=== PATIENT | female | born 1970 | race Caucasian/White ===

== ENCOUNTER 2017-08-05 12:05 | Emergency (ER) ==
[2017-08-05 12:10] VITALS: TEMP 97; BMI 24.7
--- NOTE | 2017-08-05 14:03 | ED.PDOC ---
General ED Provider: Dr. MAJOR PAN Chief Complaint: Extremity Pain/Injury Stated Complaint: CC: Rt Shoulder Pain: HPI: Patient states she has pain in the Rt Shoulder, Rt upper Thigh and Rt Foot. States does lifting when unloading things into her motel room. 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 Denies known injury. BP noted uncontrolled and stated she had been out of medications. Is from [facility] and could not get her meds for her diabetes of hypertension refilled. Denies other complaints Time Seen by Physician: 12:35 Mode of Arrival: Walk-In Information Source: Patient Exam Limitations: No limitations Nursing and Triage Documentation Reviewed and Agree: Yes Reviewed sepsis parameters & appropriate labs ordered?: Yes System Inflammatory Response Syndrome: Not Applicable Sepsis Protocol: For patient's 13 years and over: Temp is 96.8 and below OR 101 and greater Pulse >90 BPM Resp >20/minute Acutely Altered Mental Status Are patient's symptoms suggestive of a new infection, such as: -Pneumonia -Skin, Soft Tissue -Endocarditis -UTI -Bone, Joint Infection -Implantable Device -Acute Abdominal Infection -Wound Infection -Meningitis -Blood Stream Catheter Infection -Unknown System Inflammatory Response Syndrome: Not Applicable Musculoskeletal Complaint Exam - Shoulder Pain Complaint/Exam Mechanism of Injury: Reports: No known trauma Onset/Duration: 2 days Symptoms Are: Still present Timing: Intermittent Initial Severity: Moderate Current Severity: Mild Location: Reports: Discrete Character: Reports: Dull, Aching Alleviating: Reports: Elevation Aggravating: Reports: Movement, Lifting Associated Signs and Symptoms: Denies: Swelling, Redness, Bruising, Fever, Weakness, Numbness, Tingling Related History: Denies: Similar episode, Occupational injury, Dominant hand right, Dominant hand left, Immobility Non-Orthopedic Risk Factors: Reports: None DVT Risk Factors: Reports: None Septic Arthritis Risk Factors: Reports: None Related Surgical History: Reports: None Shoulder Findings: Absent: Swelling, Ecchymosis, Abnormal contour, Rotation, Ligamentous instability, Laceration, Erythema, Warmth, Blisters, Other joint pain, Foreign body, Adson's Sign Tenderness: Present: AC joint, Rotator cuff muscles Limited Range of Motion: Present: External rotation Differential Diagnoses: Arthritis, Rotator Cuff Injury, Strain Review of Systems - Review Of Systems Constitutional: Reports: No symptoms Eyes: Reports: No symptoms Ears, Nose, Mouth, Throat: Reports: No symptoms Respiratory: Reports: No symptoms Cardiac: Reports: No symptoms GI: Reports: No symptoms : Reports: No symptoms Musculoskeletal: Reports: Other (rt Shoulder, Thigh and foot pain ) Skin: Reports: No symptoms Neurological: Reports: No symptoms Endocrine: Reports: No symptoms Hematologic/Lymphatic: Reports: No symptoms All Other Systems: Reviewed and Negative Past Medical History - Past Medical History Endocrine: Reports: DM 2 Cardiovascular: Reports: Hypertension Respiratory: Reports: None Hematological: Reports: None Gastrointestinal: Reports: GERD Genitourinary: Reports: None Neuro/Psych: Reports: None, Other (Denies substance or alcohol abuse) Musculoskeletal: Reports: Joint Pain, Other (rt shoulder, thigh and foot pain ) Cancer: Reports: None Last Menstrual Period: NOW - Surgical History General Surgical History: Reports: Unknown - Family History Family History: Reports: Heart, Hypertension, Diabetes - Social History Smoking Status: Former smoker Hx Substance Use: No Alcohol Screening: None Physical Exam - Physical Exam Appearance: Well-appearing, Obese Ill-appearing: None Pain Distress: Mild Eyes: NILSON, EOMI, Conjunctiva clear ENT: Ears normal, Nose normal, Oropharynx normal Neck: Supple Respiratory: Airway patent, Breath sounds clear, Breath sounds equal Cardiovascular: RRR, Pulses normal, No rub, No murmur GI/: Soft, Nontender, No masses, Bowel sounds normal, No Organomegaly Musculoskeletal: Normal strength, ROM intact (Slight tenderness to palpation and ROM with restricted Motion to external rotation and circumduction. Focal tenderness over AC joint) Skin: Warm Neurological: Sensation intact, Motor intact, Reflexes intact, Cranial nerves intact, Alert, Oriented Psychiatric: Affect appropriate, Mood appropriate, Anxious Interpretation - Radiology Interpretation Radiology Interpretation By: Radiologist Radiology Results: No acute changes Exam Interpreted: Other (Rt Shoulder) Re-Evaluation - Re-Evaluation Time of Re-Evaluation: 16:15 Status: Improved Vital Signs Stable: Yes (BP improving after med administration) Appearance: NAD Lungs: Clear Skin: Warm and Dry Neuro: Alert and Oriented X3 CV: RRR Critical Care Note - Critical Care Note Total Time (mins): 0 Course - Course Hematology/Chemistry: 08/05/17 14:15 08/05/17 14:15 Orders, Labs, Meds: Lab Review 08/05/17 08/05/17 14:15 14:15 WBC 7.97 RBC 4.56 Hgb 13.6 Hct 40.2 MCV 88.2 MCH 29.8 MCHC 33.8 RDW Coeff of Abebe 14.2 Plt Count 258 Immature Gran % (Auto) 0.1 Neut % (Auto) 45.7 Lymph % (Auto) 40.8 [place] % (Auto) 8.4 Eos % (Auto) 4.4 Baso % (Auto) 0.6 Immature Gran # (Auto) 0.0 Neut # (Auto) 3.6 Lymph # (Auto) 3.3 [place] # (Auto) 0.7 Eos # (Auto) 0.4 Baso # (Auto) 0.1 Sodium 137 Potassium 3.5 Chloride 106 Carbon Dioxide 25 Anion Gap 9.5 BUN 15 Creatinine 0.65 Estimated GFR (MDRD) 98.00 BUN/Creatinine Ratio 23.07 Glucose 111 H Calcium 9.1 Total Bilirubin 0.8 AST 14 L ALT 11 L Alkaline Phosphatase 96 Total Protein 7.2 Albumin 3.5 Globulin 3.7 Albumin/Globulin Ratio 0.95 Orders Category Date Time Status CBC W/ AUTO DIFF Stat LAB 08/05/17 14:15 Completed CMP [COMPREHENSIVE METABOLIC PANEL] Stat LAB 08/05/17 14:15 Completed Lisinopril/Hydrochlorothiazide [Zestoretic 20-12.5 mg MEDS 08/05/17 14:52 Discontinued Tab] 1 tab PO ONCE STA SHOULDER, RIGHT MIN 2V Stat RADS 08/05/17 13:33 Completed Medications Discontinued Medications Generic Name Dose Route Start Last Admin Trade Name Freq PRN Reason Stop Dose Admin Lisinopril/HCTZ 1 tab 08/05/17 14:52 08/05/17 14:59 Zestoretic 20-12.5 Mg Tab PO 08/05/17 14:53 1 tab ONCE STA Administration Vital Signs: Temp Pulse Resp BP Pulse Ox 08/05/17 16:23 140/90 08/05/17 12:06 97.0 F L 68 20 192/104 H 98 Departure - Departure Time of Disposition: 16:10 Disposition: HOME SELF-CARE Discharge Problem: Shoulder pain, right Qualifiers: Chronicity: acute Qualified Code(s): M25.511 - Pain in right shoulder Hypertension Qualifiers: Hypertension type: unspecified Qualified Code(s): I10 - Essential (primary) hypertension Instructions: Hypertension (ED), Shoulder Pain (ED) Condition: Good Pt referred to PMD for follow-up: Yes (Follow up with PCP in next week for evaluation of BP and referral to Ortho) IPMP verified?: No Additional Instructions: TMay take Tylenol 2 tabs every 6 hours for reduction of shoulder pain Apply alternating Ice pack for 20 minutes to the rt shoulder with warm moist heat Avoid strenuous activities Schedule apt with Primary physician and/Orthopedic surgeon Take meds as directed Prescriptions: Lisinopril/Hydrochlorothiazide [Lisinopril-Hctz 20-25 mg Tab] 1 tab PO DAILY # 30 tablet Allergies/Adverse Reactions: Allergies Penicillins Adverse Reaction (Verified 08/07/17 06:23) Vomiting Home Medications: Ambulatory Orders Lisinopril/Hydrochlorothiazide [Lisinopril-Hctz 20-25 mg Tab] 1 tab PO DAILY # 30 tablet 08/05/17 Metformin HCl 1,000 mg PO DAILY 08/05/17 Ranitidine HCl [Acid Control] 150 mg PO DAILY PRN 08/07/17 Disposition Discussed With: Patient
--- NOTE | 2017-08-05 14:31 | DI ---
EXAM: Three views of the right shoulder. History: Right shoulder pain. Findings: No acute fracture or dislocation. Sclerosis and cystic change within the superior lateral aspect of the humeral head. Joint spaces are preserved. Impression: 1. No acute osseous abnormality. 2. Possible rotator cuff disease
[2017-08-05] MEDS: ZESTORETIC 20-12.5 MG TAB PO STA (14:59)
[2017-08-05 16:24] VITALS: BP 140/90
== END 2017-08-05 16:24 | disposition home or self-care (01) ==
LOC: ED 12:05
DX: M25.511 Pain in right shoulder (principal); I10 Essential (primary) hypertension; M79.671 Pain in right foot; M79.651 Pain in right thigh; E11.9 Type 2 diabetes mellitus without complications; X50.9XXA Other and unspecified overexertion or strenuous movements or postures, initial encounter
CPT/HCPCS: 36415; 80053; 85025; 99283

== ENCOUNTER 2017-08-07 06:06 | Observation (INO) | payer OTHER ==
--- NOTE | 2017-08-07 07:55 | DI ---
EXAM: Single view of the chest. History: Chest tightness. Findings: Heart size is normal. No focal consolidation. No appreciable pleural fluid and no pneumo thorax. No acute osseous abnormalities. Impression: No acute cardiopulmonary process
--- NOTE | 2017-08-07 07:56 | ED.PDOC ---
General ED Provider: Dr. MAJOR PAN Chief Complaint: Non-specific Complaint Stated Complaint: Patient states she had a sudden onset of Jaw and Neck discomfort awakening her from sleep arround 11:00 PM last evening. Described as "Tightness in upper chest moving into the jaw, sides of head -scalp and radiating into the bilateral neck and shoulder regions.Describes as being a intense pressure-tightness sensation that lasted several minutes before dissipating. Denies Chest pain or epigastric discomfort/indigestion. States she had recurrent discomfort intermittently during the night only lasting several minutes each time. It seemed to progressive worsening and she eventually awakened her telling him she felt like she needed to go the the ER. Was told she would be ok and apparently after he went to work she had yet another episode that was more uncomfortable and she drove her self to the ER. Time Seen by Physician: 07:05 Mode of Arrival: Walk-In Information Source: Patient Exam Limitations: No limitations Seen Within Last 72 Hours for Same Complaint By: ED (Was seen on 08-05-2017 for complaint of Rt Shoulder discomfort, uncontrolled hypertension stating she was traveling with her who was employed by the [employer] and was on assigment in this region. Stated then she was out of all of her meds and had not been taking her BP or Diabetic Meds requesting refills. Was given Rx Lisinopril Hctz for home. No complaints of chest, neck or jaw discomfort at that time.) Nursing and Triage Documentation Reviewed and Agree: Yes Reviewed sepsis parameters & appropriate labs ordered?: Yes System Inflammatory Response Syndrome: Not Applicable Sepsis Protocol: For patient's 13 years and over: Temp is 96.8 and below OR 101 and greater Pulse >90 BPM Resp >20/minute Acutely Altered Mental Status Are patient's symptoms suggestive of a new infection, such as: -Pneumonia -Skin, Soft Tissue -Endocarditis -UTI -Bone, Joint Infection -Implantable Device -Acute Abdominal Infection -Wound Infection -Meningitis -Blood Stream Catheter Infection -Unknown System Inflammatory Response Syndrome: Not Applicable Cardiovascular Complaint Exam - Chest Pain Complaint/Exam Onset: Sudden Duration: 3-5 minutes Symptoms Are: Resolved Timing: Intermittent Initial Severity: Mild Current Severity: Moderate Location: Reports: Upper sternal, Other (sternomanubrial region radiating into bilateral jaw, parietal temporal scalp region into bilat neck , shoulder and arms.) Pain Radiates: Reports: Left shoulder, Right shoulder, Left arm, Right arm, Jaw , Neck Character: Reports: Tightness, Heaviness, Pressure Aggravating: Reports: None Alleviating: Reports: Rest Associated Signs and Symptoms: Denies: Diaphoresis, Nausea, Vomiting, Fever, Palpitations, Cough, Back pain, Abdominal pain, Dizziness, Short of air, Calf pain, Calf swelling Related History: Reports: Current Alexandre Inhibitors. Denies: Similar episode, Current ARBs, Current Beta Samantha Related Surgical History: Reports: None History of Healthcare-Acquired Pneumonia: Reports: No AMI/ACS Risk Factors: Reports: Diabetes, Family history, Smoking, Dyslipidemia TAD Risk Factors: Reports: Hypertension, Smoking, Family history Pulmonary Embolism Risk Factors: Reports: None Prior Care for this Complaint: No Recent Stress Test: No Recent Echo/LV Function: No JVD Present: No Subcutaneous Emphysema Present: No Diminshed Breath Sounds: No Reproducible Chest Wall Pain: No Bilateral Pulses Present: Yes Unequal Pulses Noted: No If Risk Factors for AMI/ACS Consider: EKG, Cardiac Enzymes Documents Reviewed: EMS records, Labs, Imaging, EKG Differential Diagnoses: ACS, Unstable Angina, GI Diseasae Quality Indicators For Acute OK or Cardiac Chest Pain: EKG in 10min. Patient Advised to Stop Smoking: Yes (Quit smoking 2 months ago; 34 yr pack history) Review of Systems - Review Of Systems Constitutional: Reports: No symptoms Eyes: Reports: No symptoms Ears, Nose, Mouth, Throat: Reports: Throat pain (Neck pain ) Respiratory: Reports: No symptoms Cardiac: Reports: Other (Bilateral jaw,neck discomfort-occasional upper ches). Denies: Chest pain, Irregular heart rate, Lightheadedness, Palpitations, Syncope GI: Reports: No symptoms : Reports: No symptoms Musculoskeletal: Denies: Back pain, Muscle pain, Muscle stiffness Skin: Reports: No symptoms Neurological: Reports: No symptoms Endocrine: Reports: No symptoms Hematologic/Lymphatic: Reports: No symptoms All Other Systems: Reviewed and Negative Past Medical History - Past Medical History Previously Healthy: No (Hypertension, Diabetes, GERD(on Zantac)) Endocrine: Reports: DM 2 Cardiovascular: Reports: Hypertension Respiratory: Reports: None Hematological: Reports: None Gastrointestinal: Reports: GERD Genitourinary: Reports: None Neuro/Psych: Denies: Depression Musculoskeletal: Reports: None Cancer: Reports: None Last Menstrual Period: PRESENTLY - Surgical History General Surgical History: Reports: None - Family History Family History: Reports: Heart, Diabetes, Lung (Vapes daily) - Social History Smoking Status: Former smoker Hx Substance Use: Yes (COCAINE AND ALCOHOL, DOES SMOKE POT) Alcohol Screening: Occasionally - Immunizations Tetanus Shot up to Date: No Physical Exam - Physical Exam Appearance: Well-appearing (During intake experienced additional discomfort grabbing her neck appearing uncomfortable -lasted approximately 4-5 minutes) Ill-appearing: None Pain Distress: None Eyes: NILSON, EOMI, Conjunctiva clear ENT: Ears normal, Nose normal, Oropharynx normal Neck: Supple Respiratory: Airway patent, Breath sounds clear, Breath sounds equal Cardiovascular: RRR, Pulses normal, No rub, No murmur GI/: Soft, Nontender, No masses, Bowel sounds normal, No Organomegaly Musculoskeletal: Normal strength, ROM intact, No edema, No calf tenderness Skin: Warm, Dry, Normal color Neurological: Sensation intact, Motor intact, Cranial nerves intact, Alert, Oriented, Disoriented Psychiatric: Affect appropriate, Mood appropriate Critical Care Note - Critical Care Note Total Time (mins): 0 Course - Course Hematology/Chemistry: 08/07/17 07:15 08/07/17 07:15 Orders, Labs, Meds: Lab Review 08/07/17 08/07/17 08/07/17 07:10 07:15 07:15 WBC 7.98 RBC 4.62 Hgb 13.7 Hct 40.8 MCV 88.3 MCH 29.7 MCHC 33.6 RDW Coeff of Abebe 14.2 Plt Count 270 Immature Gran % (Auto) 0.4 Neut % (Auto) 48.6 Lymph % (Auto) 37.5 [place] % (Auto) 8.3 Eos % (Auto) 4.6 Baso % (Auto) 0.6 Immature Gran # (Auto) 0.0 Neut # (Auto) 3.9 Lymph # (Auto) 3.0 [place] # (Auto) 0.7 Eos # (Auto) 0.4 Baso # (Auto) 0.1 Sodium 136 Potassium 3.8 Chloride 103 Carbon Dioxide 25 Anion Gap 11.8 BUN 19 H Creatinine 0.67 Estimated GFR (MDRD) 95.00 BUN/Creatinine Ratio 28.35 Glucose 138 H Hemoglobin A1c Calcium 9.0 Total Bilirubin 0.9 AST 11 L ALT 9 L Alkaline Phosphatase 97 Total Creatine Kinase 27 Troponin I 0.0410 Total Protein 6.7 Albumin 3.3 L Globulin 3.4 Albumin/Globulin Ratio 0.97 Triglycerides 81 Cholesterol 179 LDL Cholesterol, Calc 102 VLDL Cholesterol 16 HDL Cholesterol 61 Cholesterol/HDL Ratio 2.9 L 08/07/17 08:45 WBC RBC Hgb Hct MCV MCH MCHC RDW Coeff of Abebe Plt Count Immature Gran % (Auto) Neut % (Auto) Lymph % (Auto) [place] % (Auto) Eos % (Auto) Baso % (Auto) Immature Gran # (Auto) Neut # (Auto) Lymph # (Auto) [place] # (Auto) Eos # (Auto) Baso # (Auto) Sodium Potassium Chloride Carbon Dioxide Anion Gap BUN Creatinine Estimated GFR (MDRD) BUN/Creatinine Ratio Glucose Hemoglobin A1c 9.0 H Calcium Total Bilirubin AST ALT Alkaline Phosphatase Total Creatine Kinase Troponin I Total Protein Albumin Globulin Albumin/Globulin Ratio Triglycerides Cholesterol LDL Cholesterol, Calc VLDL Cholesterol HDL Cholesterol Cholesterol/HDL Ratio Orders Category Date Time Status EKG-(ED ONLY) Stat CARDIO 08/07/17 07:00 Completed NPO REMINDER: LAB TEST ONCE CARE 08/07/17 08:06 Completed CBC W/ AUTO DIFF Stat LAB 08/07/17 07:15 Completed COMPREHENSIVE METABOLIC PANEL Stat LAB 08/07/17 07:15 Completed CREATINE KINASE Stat LAB 08/07/17 07:15 Completed HEMOGLOBIN A1C Stat LAB 08/07/17 08:45 Completed LIPID PANEL Stat LAB 08/07/17 07:10 Completed TROPONIN I Stat LAB 08/07/17 07:15 Completed URINALYSIS C & S IF INDICATED Stat LAB 08/07/17 09:04 Uncollected URINE DRUG SCREEN (RAPID FOR ED) [DRUG SCREEN, URINE, LAB 08/07/17 09:04 Uncollected RAPID] Stat Lorazepam [Ativan] MEDS 08/07/17 08:08 Discontinued 1 mg PO ONCE STA Ranitidine HCl [Zantac] MEDS 08/07/17 08:42 Discontinued 150 mg PO ONCE STA CHEST, 1V AP ONLY Stat RADS 08/07/17 07:00 Completed Medications Discontinued Medications Generic Name Dose Route Start Last Admin Trade Name Freq PRN Reason Stop Dose Admin Lorazepam 1 mg 08/07/17 08:08 08/07/17 08:14 Ativan PO 08/07/17 08:09 1 mg ONCE STA Administration Ranitidine HCl 150 mg 08/07/17 08:42 03/08/18 08:50 Zantac PO 08/07/17 08:43 150 mg ONCE STA Administration Vital Signs: Temp Pulse Resp BP Pulse Ox 08/07/17 06:50 56 L 20 145/92 H 98 08/07/17 06:07 97.4 F L 65 20 143/98 H 99 AMI Core - Palliative Care Palliative Care: none - Aspirin Reason for not ordering Aspirin: not indicated - Statins Reason for not ordering Statins: not indicated - Fibrinolytic Reason for not ordering Fibrinolytic: not indicated - EKG Initial Interpretation EKG Initial Interpretation Date: 08/07/17 (LVH voltage criteria, No Acute STT wave changes; Cannot R/O Old septal infarct) BAHMAN Risk Score BAHMAN Risk Score: Risk Score Odds of by 30D 0 0.1 (0.1-0.2) 1 0.3 (0.2-0.3) 2 0.4 (0.3-0.5) 3 0.7 (0.6-0.9) 4 1.2 (1.0-1.5) 5 2.2 (1.9-2.6) 6 3.0 (2.5-3.6) 7 4.8 (3.8-6.1) Departure - Departure Time of Disposition: 09:25 Disposition: PLACED OBSERVATION Discharge Problem: Atypical chest pain, Anxiety GERD (gastroesophageal reflux disease) Qualifiers: Esophagitis presence: esophagitis presence not specified Qualified Code(s): K21.9 - Gastro-esophageal reflux disease without esophagitis Hypertension Qualifiers: Hypertension type: essential hypertension Qualified Code(s): I10 - Essential ( primary) hypertension Diabetes type 2, controlled Qualifiers: Diabetes mellitus complication status: without complication Condition: Fair Pt referred to PMD for follow-up: Yes (admitted to dr allen) IPMP verified?: Yes (neg for [place]) Additional Instructions: Recommended to patient for 23 hr observation for serial EKG and cardiac lab, plus cardiac work up including Stress Test. Stated she was agreeable to this. Spoke with Dr Allen who agreed to admission for observation and will order remaining test as needed .Requested urine Drug Screen.Test ordered. Stated since receiving Lorazepam and Zantac is feeling much better. Allergies/Adverse Reactions: Allergies Penicillins Adverse Reaction (Verified 08/07/17 06:23) Vomiting Home Medications: Ambulatory Orders Lisinopril/Hydrochlorothiazide [Lisinopril-Hctz 20-25 mg Tab] 1 tab PO DAILY # 30 tablet 08/05/17 Metformin HCl 1,000 mg PO DAILY 08/05/17 Ranitidine HCl [Acid Control] 150 mg PO DAILY PRN 08/07/17 Disposition Discussed With: Patient Additional Comments Additional Comments: Initally patient denied history of recent drug use. Upon further inquiry patient admitted to recent Coccaine use last weekend and further more admitted to long standing hx of drug and alcohol use(States does not drink daily and attempting to stop coccaine). Stated "my whole family has hx of drug problems and that her niece recently from heroin overdose" Stated she only uses when she goes back to [place]. 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
[2017-08-07] MEDS ORDERED: ATIVAN PO STA (08:08)
[2017-08-07] MEDS ORDERED: ZANTAC PO STA (08:42)
[2017-08-07 10:18] VITALS: BMI 28.6
[2017-08-07] MEDS ORDERED: LOVENOX SUBCUT STA (10:32)
[2017-08-07] MEDS ORDERED: NON-FORMULARY MEDICATION (Metformin Hcl [Metformin Hcl] 1,000 MG) PO SCH (10:45)
[2017-08-07] MEDS ORDERED: GLUCOPHAGE PO SCH (11:00)
[2017-08-07] MEDS ORDERED: ROCEPHIN 1 GM in SODIUM CHLORIDE 50 ML IV SCH (11:00)
[2017-08-07] MEDS ORDERED: ZESTRIL PO SCH (11:00)
[2017-08-07] MEDS ORDERED: HYDROCHLOROTHIAZIDE PO SCH (11:00)
[2017-08-07] MEDS ORDERED: TORADOL IVP PRN (11:20)
[2017-08-07] MEDS ORDERED: TORADOL IVP STA (11:20)
--- NOTE | 2017-08-07 11:23 | CT ---
EXAM: CT BRAIN HISTORY: Headache TECHNIQUE: CT brain without intravenous contrast. 5-mm axial sections with Reformations. COMPARISON: None FINDINGS: There is mild generalized atrophy. There is at least mild periventricular and deep white matter low a ttenuation which although nonspecific is suggestive of chronic microvascular ischemic change. Possib le tiny 6 mm chronic infarction in the right periventricular deep white matter versus asymmetric exte nsion of chronic microvascular ischemic change. Brain otherwise is unremarkable without evidence of hemorrhage or large vessel distribution recent is chemic infarction. There is no suggestion of acute hydrocephalus or subdural fluid collection. No m ass or mass effect. Cranium is within normal limits. Mastoid processes are aerated. The visualized paranasal sinuses a re clear. IMPRESSION: No acute intracranial process.
[2017-08-07] MEDS ORDERED: NICODERM 21 MG TD SCH (11:30)
--- NOTE | 2017-08-07 13:15 | STRESSECHO ---
Date of Test: 08/07/17 Reason for Exam: CHEST PAIN, HTN, DM, JAW AND ARM PAIN/TIGHTNESS Ordering Physician: DR. HUEY BAINS Current Medications: CEFTRIAXONE, HCTZ, TORADOL, ZESTRIL, GLUCOPHAGE, RANITIDINE , METFORMIN Resting EKG: SINUS RHYTHM/SHORT ID Target Heart Rate: 147/174 S-T SEGMENT STAGE MPH/GRADE HEART RATE BPM BLOOD PRESSURE MMHG RHYTHM 0 +/- ELEVATION DEPRESSION SYMPTOMS,COMMENTS At Rest 80 124/78 SR X NO COMMENTS 1 1.7/10% 110 144/82 SR X NO COMMENTS 2 2.5/12% 3 3.4/14% 4 4.2/16% 5 5.0/18% Immediately after 110 144/82 SR X CHEST PAIN Durations of Exercise: 2:53 Maximum Heart Rate Reached: 110 Reason for Termination: CHEST PAIN 3 MINUTES POST EXERCISE: HR 90 BPM, BP 132/88 MMHG, SR, +/-, NO COMMENTS INTERPRETATION: 98% OXYGEN SATURATION WITH EXERCISE ON ROOM AIR 1. TEST POSITIVE FOR ISCHEMIA (ST ELEVATION IN PRECORDIAL LEAD) 2. CHEST TIGHTNESS WITH EXERCISE 3. PVC'S DURING EXERCISE 4. BLOOD PRESSURE RESPONSE NORMAL 5. LEFT VENTRICLE CONTRACTILITY NORMAL AT REST 6. HYPOKINETIC SEPTUM POST EXERCISE 7. FIVE MINUTES POST EXERCISE--NORMAL LEFT VENTRICULAR CONTRACTILITY MTDD
--- NOTE | 2017-08-07 13:18 | ECHOSTRESS ---
Date of Exam: 08/07/17 Ordering Physician: DR. HUEY BAINS Reason for Echo: CHEST PAIN, STRESS TEST--POSITIVE FOR ISCHEMIA M-Mode Normal Adult Results LV Dimensions Normal Adult Results AoV Opening excursions >1.6 LVEDD-base- 3.5-5.8 Ao root dimensions 2.0-3.7 LVESD-base- 3.1-4.6 L. Atrium dimensions 1.9-3.8 Post. Wall thickness 0.8-1.1 IV septum (thickness) 0.7-1.2 Post. Wall excursion 0.72-1.3 Septal motion Systolic motion R. Ventricular cavity 1.5-2.0 LVEF 60% Paradoxical septal wall motion 2-D: NORMAL LEFT VENTRICULAR CONTRACTILITY AT REST--HYPOKINETIC SEPTUM WITH EXERCISE M-MODE: MV: AV: TV: PV: CHAMBER SIZE: WALL MOTION: NORMAL LEFT VENTRICULAR CONTRACTILITY AT REST-- HYPOKINETIC SEPTUM WITH EXERCISE PERICARDIUM: INTERPRETATION: 1. NORMAL LEFT VENTRICULAR CONTRACTILITY AT REST-- HYPOKINETIC SEPTUM WITH EXERCISE MTDD
--- NOTE | 2017-08-07 13:21 | ECHO2D ---
Date of Exam: 08/07/17 Ordering Physician: DR. HUEY BAINS Room #: [id number] Reason for Echo: CHEST PAIN M-Mode Normal Adult Results LV Dimensions Normal Adult Results AoV Opening excursions >1.6 >1.6 LVEDD-base- 3.5-5.8 4.5 Ao root dimensions 2.0-3.7 3.0 LVESD-base- 3.1-4.6 3.5 L. Atrium dimensions 1.9-3.8 3.5 Post. Wall thickness 0.8-1.1 1.0 IV septum (thickness) 0.7-1.2 1.0 Post. Wall excursion 0.72-1.3 NORMAL Septal motion NORMAL Systolic motion R. Ventricular cavity 1.5-2.0 NORMAL LVEF 60% 58% Paradoxical septal wall motion NORMAL 2-D : 2-D M Mode Echocardiogram was performed using apical four chamber and left parasternal long and short axis views. Mitral, tricuspid and aortic valves appear to be normal. Contractility of the left ventricle seems to be normal, so is the cavity size. Left atrial cavity size and aortic root appear to be normal. There is no pericardial effusion. There is no thrombus noted in the left ventricular or left aortic cavity. No mitral valve prolapse noted. M-MODE: MV: NORMAL AV: NORMAL TV: NORMAL PV: CHAMBER SIZE: NORMAL WALL MOTION: NORMAL PERICARDIUM: NORMAL INTERPRETATION: 1. NORMAL 2 "D" "M" MODE ECHO MTDD
--- NOTE | 2017-08-07 13:45 | SSS ---
DATE OF SERVICE: 08/07/17 REASON FOR ADMISSION: Chest pain. HISTORY OF PRESENT ILLNESS: This is a 47-year-old female with diabetes, hypertension and history of cocaine use, came to the emergency room with feeling of heaviness in the mid sternum since yesterday. Both shoulders and extremities were heavy. She had a similar episode two months ago for which the patient did not do anything. The patient has family history of coronary artery disease. As the chest pain was not getting better, she came to the emergency room today. EKG was normal sinus. Troponin and cardiac enzymes were negative. Urine screen positive for cocaine. At that time she was admitted to the hospital to rule out acute coronary syndrome. REVIEW OF SYSTEMS: CONSTITUTIONAL: No night sweats. No fatigue, malaise, lethargy. No fever or chills. HEENT: Eyes: No visual changes. No eye pain. No eye discharge. ENT: No runny nose. No epistaxis. No sinus pain. No sore throat. No odynophagia. No ear pain. No congestion. RESPIRATORY: No cough, no congestion. No hemoptysis. No shortness of breath. CARDIOVASCULAR: No angina symptoms. No CHF symptoms. Chest tightness and heaviness. No palpitations. No orthopnea. GASTROINTESTINAL: No abdominal pain. No nausea or vomiting. No diarrhea or constipation. No hematemesis. No hematochezia. GENITOURINARY: No dysuria. No hematuria. No obstructive symptoms. No discharge. No pain. No significant abnormal bleeding. MUSCULOSKELETAL: No musculoskeletal pain. No joint swelling. NEUROLOGICAL: Awake, alert, oriented to time, place and person. No headache. No neck pain. No syncope. No seizures. No dizziness. PSYCHIATRIC: Not anxious. No depression. No suicidal thoughts. No homicidal thoughts. SKIN: No rash. No lesions. No wounds. ENDOCRINE: No unexplained weight loss. No weight gain. HEMATOLOGIC/LYMPHATIC: No anemia. No purpura. No petechiae. No prolonged or excessive bleeding. No palpable lymph nodes. PAST MEDICAL HISTORY: DM Hypertension Dyslipidemia PERSONAL/FAMILY HISTORY/SOCIAL HISTORY: . Smokes marijuana. Uses cocaine, last time per patient before the weekend. Family History: Significant for coronary artery disease. PHYSICAL EXAMINATION: VITAL SIGNS: Temperature 97.4, pulse 65, BP 143/98, respiratory rate 20. HEENT: Head normocephalic, atraumatic. Eyes: Extraocular muscles are intact. Pupils are equal, round and reactive to light and accommodation. Ears: No lesions. Nose appeared normal. Throat: No exudate or erythema. NECK: Supple. No JVD, no carotid bruit. No lymphadenopathy or thyromegaly. LUNGS: Clear to auscultation. Percussion note normal. Chest symmetrical. HEART: S1, S2, no S3. No murmurs. No cyanosis or clubbing. No ascites. Pulses: Dorsalis pedis and posterior tibial pulses +1 to +2 both sides. ABDOMEN: Soft. Nontender. Bowel sounds active. No CVA tenderness. No mass felt. EXTREMITIES: No edema. Full range of motion of all extremities, equal. NEUROLOGIC: No focal deficit. Cranial nerves II through XII are grossly intact. No headache, no double vision or headache. SKIN: Not dry. Intact. Turgor - normal. LYMPHATIC: No palpable lymph nodes/no lymphedema. MUSCULOSKELETAL: Normal joints with no swelling. Muscle tone is normal. Old/present records reviewed Office records reviewed. ALLERGIES: PENICILLINS MEDICATIONS: (HOME) Lisinopril-HCTZ 20-25 mg one tab p.o. daily Metformin 1000 mg p.o. daily Ranitidine 150 mg p.o. daily p.r.n. LABS/EKG'S/X-RAY/ECHO/ABG: WBC 7.98, RBC 4.62, Hgb 13.7, Hct 40.8, MCV 88.3, MCH 29.7, MCHC 33.6, RDW Coeff of Abebe 14.2, platelet count 270, Neut %(Auto) 48.6, Lymph % (Auto) 37.5, King % (Auto) 8.3, Eos % (Auto) 4.6, Baso % (Auto) 0.6, Immature Gran# (Auto) 0.0, Neut# (Auto) 3.9, Lymph #(Auto) 3.0, King #(Auto) 0.7, Eos #(Auto) 0.4, Baso#(Auto) 0.1. Chemistries: Sodium 136, Potassium 3.8, Chloride 103, Carbon Dioxide 25, Anion Gap 11.8, BUN 19, Creatinine 0.67, Estimated GFR 95, BUN/ Creatinine Ratio 28.35, glucose 138, Hgb A1C 9.0, Calcium 9.0, total bilirubin 0.9, AST 11, ALT 9, alkaline phosphatase 97, Troponin I 0.0410, total protein 6.7, albumin 3.3, globulin 3.4, triglycerides 81, cholesterol 179, LDL 102, VLDL 16, HDL 61, Cholesterol/HDL ratio 2.9. TSH 1.142. Urine positive for nitrite, trace-lysed blood, microscopic RBC 0.2, Squamous epithieal cells 20-30 , urine bacteria 4+. Toxicology: Positive for cocaine. Head CT: No acute intracranial process. Chest x-ray: No acute cardiopulmonary process. Stress echo: Normal left ventricular contractility at rest Hypokinetic septum with exercise. Stress echo report: 1) Test positive for ischemia (ST elevation in precordial lead); 2) Chest tightness with exercise; 3) PVCs during exercise; 4) Blood pressure response normal; 5) Left ventricle contractility normal at rest; 6) Hypokinetic septum post exercise; 7) Five minutes post exercise - normal left ventricular contractility. PROGRESS NOTES: See EMR. BRIEF HOSPITAL COURSE: The patient was admitted to observation. I asked Dr. Aj to do stress test and he was courtenous enough to do the test. Within [address]-T wave changes were seen and some PVCs and patient was complaining of chest pain. The patient rested for 3 minutes, which resolved the pain. At that time, he called me and suggested that the patient needs to be transferred for heart cath because of the stress findings. DIAGNOSES: 1. CHEST PAIN WITH POSITIVE STRESS TEST 2. DIABETES MELLITUS, TYPE 2 3. HYPERTENSION 4. COCAINE USE 5. FAMILY HISTORY OF CORONARY ARTERY DISEASE RECOMMENDATIONS/PLAN: 1. Transfer patient to [facility] for heart cath 2. Lifestyle modifications discussed TIME SPENT: More than 70 minutes. MELISSA
[2017-08-07 14:14] VITALS: BP 115/75; TEMP 97.8
[2017-08-07] MEDS ORDERED: ZANTAC PO SCH (17:00)
== END 2017-08-07 14:25 ==
LOC: ED 06:06 → MEDSURG A 09:23
PROVIDERS: ADMIT Emergency Medicine; ATTEND Emergency Medicine
DX: R07.89 Other chest pain (principal); I24.9 Acute ischemic heart disease, unspecified; I10 Essential (primary) hypertension; R68.84 Jaw pain; F14.90 Cocaine use, unspecified, uncomplicated; E11.9 Type 2 diabetes mellitus without complications; E78.5 Hyperlipidemia, unspecified; Z82.49 Family history of ischemic heart disease and other diseases of the circulatory system; Z79.84 Long term (current) use of oral hypoglycemic drugs
CPT/HCPCS: 36415; 80053; 80061; 80306; 81001; 82550; 82962; 83036; 84443; 84484; 85025; 87086; 87186; 93005; 93010; 96365; 96372; 96375; 99284